=== PATIENT | male | born 1970 | race Caucasian/White ===

== ENCOUNTER 2018-08-26 20:37 | Emergency (ER) | payer MEDICAID, OTHER ==
[2018-08-26] MEDS ORDERED: Sodium Chloride 0.9% 1,000 ML IV SCH ×2 (22:30→23:30)
--- NOTE | 2018-08-26 22:31 | CRLCR ---
INDICATION: Pain TECHNIQUE: Abdomen two-view abdomen one-view chest. COMPARISON: None FINDINGS: Chest: Cardiac silhouette is normal in size. Lungs and pleural spaces are clear. Bowel: Bowel pattern is normal. Colonic fecal retention. Soft tissues: No sign of free air. No sign of soft tissue mass. No suspicious calcifications. Surgical clips right upper quadrant. Bones: Unremarkable for age. IMPRESSION: Colonic fecal retention. Normal appearing chest. Dictated by Yonas Matthews MD @ 08/26/2018 10:30:41 PM Dictated by: Yonas Matthews MD @ 08/26/2018 22:30:47 (Electronically Signed)
[2018-08-26] MEDS ORDERED: Sodium Chloride 0.9% 10 ML Syringe FLUSH ONE (22:33)
[2018-08-26] MEDS ORDERED: Insulin Regular, Human 100 Units/ML 3 ML Vial SUBCUT ONE (22:37)
[2018-08-26] MEDS ORDERED: Iopamidol 612 MG/ML 150 ML Bottle IV STA (22:42)
[2018-08-26] MEDS ORDERED: Iopamidol 612 MG/ML 150 ML Bottle IV SCH (22:45)
[2018-08-26] MEDS ORDERED: Sodium Chloride 0.9% 100 ML IV SCH (22:45)
--- NOTE | 2018-08-26 23:31 | CRLCT ---
INDICATION: Abdominal pain. COMPARISON: None available TECHNIQUE: CT examination of the abdomen and pelvis was performed with the uneventful intravenous administration of 150 cc of Isovue-300 while 3 mm thick axial sections were obtained from the lung bases through the pubic symphysis. Oral contrast was not administered. Please note that all CT scans at this facility use dose modulation, iterative reconstruction, and/or weight-based dosing when appropriate to reduce radiation dose to as low as reasonably achievable. FINDINGS: In the abdomen, the liver is low in density, representing fatty infiltration. There is no sign of mass. The spleen, pancreas and adrenals are normal in appearance. A few tiny cysts are seen in both kidneys. The kidneys are otherwise normal in appearance. Clips are seen in the gall bladder fossa from cholecystectomy. The abdominal aorta is normal in caliber with no sign of dilatation. There is no sign of retroperitoneal mass or adenopathy. The stomach, loops of small bowel, and colon in the abdomen are normal in appearance. In the pelvis, the appendix is normal in appearance with no sign of inflammatory process. The loops of small bowel and colon in the pelvis are normal in appearance. The prostate is normal in appearance. The urinary bladder is normal in appearance. There is no sign of pelvic or inguinal mass or adenopathy. The lung bases are clear. The osseous structures are normal in appearance for the patient`s age. IMPRESSION: Nothing seen to explain the patient`s abdominal pain. CT of the abdomen shows changes of cholecystectomy. Fatty infiltration of the liver. Normal CT of the pelvis with contrast. Please note that all CT scans at this facility use dose modulation, iterative reconstruction, and/or weight-based dosing when appropriate to reduce radiation dose to as low as reasonably achievable. Dictated by Kam Nj MD @ Aug 26 2018 11:25PM Signed by Dr. Kam Nj @ Aug 26 2018 11:29PM
--- NOTE | 2018-08-27 | EDM.PDOC ---
ED HPI GENERAL MEDICAL PROBLEM - General Chief Complaint: Gastrointestinal Problem Stated Complaint: ABD PAIN/UNABLE TO HAVE A BOWEL MOVEMENT Time Seen by Provider: 08/26/18 21:30 Source of Information: Reports: Patient History Limitations: Reports: No Limitations - History of Present Illness INITIAL COMMENTS - FREE TEXT/NARRATIVE: pt arrived with ahistory of no BM for the past 4-5 days. He is not vomiting He is having upper abdomanal pain. Onset: Gradual, Other (last 2 days. He was seen at the clinic today and he was given mag citrate and a fleets enemea. ) Duration: Day(s): Location: Reports: Abdomen Associated Symptoms: Reports: Nausea/Vomiting, Other (pt is nauseated but is not vomiting. ) upper middle abd' Pain Score (Numeric/FACES): 4 - Related Data Allergies Allergy/AdvReac Type Severity Reaction Status Date / Time No Known Allergies Allergy Verified 08/26/18 21:52 Home Meds: Home Meds Amitriptyline HCl 50 mg PO DAILY 08/22/13 [History] Hydrochlorothiazide 1 tab PO DAILY 08/22/13 [History] Levothyroxine 1 tab PO DAILY 08/22/13 [History] Lisinopril [Prinivil] 1 tab PO DAILY 08/22/13 [History] SUMAtriptan succinate [Sumatriptan Succinate] 1 applic SUBCUT DAILY PRN [History] metFORMIN [Glucophage] 500 mg PO BIDMEALS 08/26/18 [History] Past Medical History Cardiovascular History: Reports: Hypertension Gastrointestinal History: Reports: Colon Polyp Musculoskeletal History: Reports: Fracture Neurological History: Reports: Migraines Endocrine/Metabolic History: Reports: Diabetes, Type II, Hypothyroidism, Obesity /BMI 30+ - Past Surgical History HEENT Surgical History: Reports: Tonsillectomy GI Surgical History: Reports: Cholecystectomy, Colonoscopy, EGD Musculoskeletal Surgical History: Reports: Other (See Below) Other Musculoskeletal Surgeries/Procedures:: ankle surgery Social & Family History - Tobacco Use Smoking Status *Q: Never Smoker - Caffeine Use Caffeine Use: Reports: Coffee - Recreational Drug Use Recreational Drug Use: No ED ROS GENERAL - Review of Systems Review Of Systems: See Below Constitutional: Reports: No Symptoms, Chills HEENT: Reports: No Symptoms Respiratory: Reports: No Symptoms Cardiovascular: Reports: No Symptoms Endocrine: Reports: High Glucose GI/Abdominal: Reports: Abdominal Pain, Other (pt has pain in the upper mid abdoman. ) : Reports: No Symptoms Musculoskeletal: Reports: No Symptoms Skin: Reports: No Symptoms Neurological: Reports: No Symptoms Psychiatric: Reports: No Symptoms ED EXAM, GI/ABD - Physical Exam Exam: See Below Text/Narrative:: pt arrived with a history of nor bm for several days. He is having upper abdomanal pain. He is nauseated but he is not vomiting. He has a history of diabetes on metformin only. His bs is usually in the 180-190 range. Pt has not had severe pain--more just uncomfortable. Exam Limited By: No Limitations General Appearance: Alert, Moderate Distress Ears: Normal TMs Nose: Normal Inspection Throat/Mouth: Normal Inspection Head: Atraumatic Neck: Normal Inspection Respiratory/Chest: No Respiratory Distress Cardiovascular: Regular Rate, Rhythm GI/Abdominal Exam: Tender, Other (pt has epigastric tenderness. ) (Male) Exam: Deferred Rectal (Males) Exam: Other (pt has no stool in the rectum. There is no masses in the rectum. ) Back Exam: Normal Inspection Extremities: Normal Inspection Neurological: Alert, Oriented, Normal Cognition Psychiatric: Normal Affect Course - Vital Signs Last Recorded V/S: Last Vital Signs Temp 36.5 C 08/27/18 00:21 Pulse 102 H 08/27/18 00:21 Resp 16 08/27/18 00:21 BP 139/96 H 08/27/18 00:21 Pulse Ox 94 L 08/27/18 00:21 - Orders/Labs/Meds Labs: Laboratory Tests 08/26/18 08/26/18 08/26/18 Range/Units 21:51 21:51 21:51 WBC 14.2 H (4.5-11.0) K/uL RBC 5.30 (4.30-5.90) M/uL Hgb 15.9 H (12.0-15.0) g/dL Hct 46.2 (40.0-54.0) % MCV 87 (80-98) fL MCH 30 (27-31) pg MCHC 34 (32-36) % Plt Count 334 (150-400) K/uL Neut % (Auto) 78 H (36-66) % Lymph % (Auto) 12 L (24-44) % Cooper % (Auto) 10 H (2-6) % Eos % (Auto) 1 L (2-4) % Baso % (Auto) 0 (0-1) % Sodium 133 L (140-148) mmol/L Potassium 3.9 (3.6-5.2) mmol/L Chloride 94 L (100-108) mmol/L Carbon Dioxide 30 (21-32) mmol/L Anion Gap 12.9 (5.0-14.0) mmol/L BUN 11 (7-18) mg/dL Creatinine 1.1 (0.8-1.3) mg/dL Est Cr Clr Drug Dosing 79.45 mL/min Estimated GFR (MDRD) > 60 (>60) Glucose 396 H (74-106) mg/dL Calcium 9.7 (8.5-10.1) mg/dL Total Bilirubin 0.6 (0.2-1.0) mg/dL AST 15 (15-37) U/L ALT 30 (12-78) U/L Alkaline Phosphatase 77 (46-116) U/L C-Reactive Protein 4.78 H (0.0-0.3) mg/dL Total Protein 8.0 (6.4-8.2) g/dL Albumin 3.8 (3.4-5.0) g/dL Globulin 4.2 H (2.3-3.5) g/dL Albumin/Globulin Ratio 0.9 L (1.2-2.2) Amylase (25-115) U/L Lipase (73-393) U/L Urine Color Urine Appearance Urine pH (4.5-8.0) Ur Specific [place] (1.008-1.030) Urine Protein (NEGATIVE) mg/dL Urine Glucose (UA) (NEGATIVE) mg/dL Urine Ketones (NEGATIVE) mg/dL Urine Occult Blood (NEGATIVE) Urine Nitrite (NEGAITVE) Urine Bilirubin (NEGATIVE) Urine Urobilinogen (NORMAL) mg/dL Ur Leukocyte Esterase (NEGATIVE) Urine RBC (0-5) Urine WBC (0-5) Ur Epithelial Cells Amorphous Sediment Urine Bacteria Urine Mucus 08/26/18 08/26/18 08/26/18 Range/Units 22:24 22:25 22:50 WBC (4.5-11.0) K/uL RBC (4.30-5.90) M/uL Hgb (12.0-15.0) g/dL Hct (40.0-54.0) % MCV (80-98) fL MCH (27-31) pg MCHC (32-36) % Plt Count (150-400) K/uL Neut % (Auto) (36-66) % Lymph % (Auto) (24-44) % Cooper % (Auto) (2-6) % Eos % (Auto) (2-4) % Baso % (Auto) (0-1) % Sodium (140-148) mmol/L Potassium (3.6-5.2) mmol/L Chloride (100-108) mmol/L Carbon Dioxide (21-32) mmol/L Anion Gap (5.0-14.0) mmol/L BUN (7-18) mg/dL Creatinine (0.8-1.3) mg/dL Est Cr Clr Drug Dosing mL/min Estimated GFR (MDRD) (>60) Glucose (74-106) mg/dL Calcium (8.5-10.1) mg/dL Total Bilirubin (0.2-1.0) mg/dL AST (15-37) U/L ALT (12-78) U/L Alkaline Phosphatase (46-116) U/L C-Reactive Protein (0.0-0.3) mg/dL Total Protein (6.4-8.2) g/dL Albumin (3.4-5.0) g/dL Globulin (2.3-3.5) g/dL Albumin/Globulin Ratio (1.2-2.2) Amylase 795 H (25-115) U/L Lipase 8499 H (73-393) U/L Urine Color Yellow Urine Appearance Clear Urine pH 6.0 (4.5-8.0) Ur Specific [place] 1.010 (1.008-1.030) Urine Protein Negative (NEGATIVE) mg/dL Urine Glucose (UA) 1000 H (NEGATIVE) mg/dL Urine Ketones 50 H (NEGATIVE) mg/dL Urine Occult Blood Negative (NEGATIVE) Urine Nitrite Negative (NEGAITVE) Urine Bilirubin Negative (NEGATIVE) Urine Urobilinogen 1 (NORMAL) mg/dL Ur Leukocyte Esterase Negative (NEGATIVE) Urine RBC Not seen (0-5) Urine WBC 0-5 (0-5) Ur Epithelial Cells Not seen Amorphous Sediment Many Urine Bacteria Not seen Urine Mucus Not seen Meds: Medications Discontinued Medications Generic Name Dose Route Start Last Admin Trade Name Mary PRN Reason Stop Dose Admin Sodium Chloride 1,000 mls @ 999 mls/hr 08/26/18 22:30 08/26/18 23:18 Normal Saline IV 999 mls/hr ASDIRECTED MARIAN Administration Sodium Chloride 100 mls @ 3 mls/sec 08/26/18 22:45 Normal Saline IV ASDIRECTED MARIAN Sodium Chloride 85 mls @ 3.5 mls/sec 08/26/18 22:42 08/26/18 23:03 Normal Saline IV 08/26/18 22:43 3.5 mls/sec ASDIRECTED STA Administration Sodium Chloride 1,000 mls @ 999 mls/hr 08/26/18 23:30 08/27/18 00:04 Normal Saline IV 999 mls/hr ASDIRECTED MARIAN Administration Insulin Human Regular 5 unit 08/26/18 22:37 08/26/18 23:25 Humulin R SUBCUT 08/26/18 22:38 5 units ONETIME ONE Administration Insulin Human Regular 4 unit 08/27/18 00:11 08/27/18 00:20 Humulin R IVPUSH 08/27/18 00:12 4 units ONETIME ONE Administration Iopamidol 150 ml 08/26/18 22:45 Isovue-300 (61%) IV . DIRECTED MARIAN Iopamidol 150 ml 08/26/18 22:42 08/26/18 23:02 Isovue-300 (61%) IV 08/26/18 22:43 150 ml . DIRECTED STA Administration Sodium Chloride 10 ml 08/26/18 22:33 08/26/18 23:18 Saline Flush FLUSH 08/26/18 22:34 10 ml ONETIME ONE Administration - Re-Assessments/Exams Free Text/Narrative Re-Assessment/Exam: 08/27/18 00:06 pt had a cat scan of the abdoman which did not reveal acute findings.. His bs was 396 and he was given 5 units of subq insulin. He is on his second liter of fluid. His gb is gone. He did not appear to have a dilated duct. His history indicates his triglicerides have been elelvated. -- According to the family these were not extremely high. He does not abuse etoh. 08/27/18 00:08 Departure - Departure Time of Disposition: 00:50 Disposition: DC/Tfer to Acute Hospital 02 Condition: Fair Clinical Impression: Pancreatitis, Constipation, Hyperglycemia - Discharge Information Referrals: Yonas Calero MD [Primary Care Provider] - Forms: ED Department Discharge Care Plan Goals: transfer to [facility]
[2018-08-27] MEDS ORDERED: Insulin Regular, Human 100 Units/ML 3 ML Vial IVPUSH ONE (00:11)
== END 2018-08-27 01:05 ==
LOC: JP.ED 20:37
DX: K85.90 Acute pancreatitis without necrosis or infection, unspecified (principal); K59.00 Constipation, unspecified; E11.65 Type 2 diabetes mellitus with hyperglycemia; I10 Essential (primary) hypertension; E03.9 Hypothyroidism, unspecified; E66.9 Obesity, unspecified; Z79.899 Other long term (current) drug therapy; Z79.84 Long term (current) use of oral hypoglycemic drugs; Z68.41 Body mass index [BMI] 40.0-44.9, adult
CPT/HCPCS: 36415; 74022; 74177; 80053; 81001; 82150; 82962; 83690; 85025; 86140; 96361; 96374; 99285; J1815; J7030

== ENCOUNTER 2020-03-17 14:26 | Emergency (ER) | payer OTHER ==
[2020-03-17] MEDS ORDERED: Acetaminophen 325 MG Tab PO PRN (15:59)
--- NOTE | 2020-03-17 16:01 | EDM.PDOC ---
ED HPI GENERAL MEDICAL PROBLEM - General Chief Complaint: General Stated Complaint: COVID SYMPTOMS, HIGH BLOOD SUGARS Time Seen by Provider: 03/17/20 15:56 Source of Information: Reports: Patient, Family, RN Notes Reviewed History Limitations: Reports: No Limitations - History of Present Illness INITIAL COMMENTS - FREE TEXT/NARRATIVE: 49-year-old gentleman presents emergency department today complaint of congestion and problems with his blood sugar he is concerned about Covid and would like to be tested - Related Data Allergies Allergy/AdvReac Type Severity Reaction Status Date / Time No Known Allergies Allergy Verified 03/17/20 14:37 Home Meds: Home Meds Amitriptyline HCl 50 mg PO DAILY 08/22/13 [History] Hydrochlorothiazide 1 tab PO DAILY 08/22/13 [History] Levothyroxine 1 tab PO DAILY 08/22/13 [History] SUMAtriptan succinate [Sumatriptan Succinate] 1 applic SUBCUT DAILY PRN 08/22/13 [History] lisinopriL [Prinivil] 1 tab PO DAILY 08/22/13 [History] metFORMIN [Glucophage] 500 mg PO BIDMEALS 08/26/18 [History] glipiZIDE [Glucotrol] 5 mg PO BID 03/17/20 [History] Past Medical History Cardiovascular History: Reports: Hypertension Gastrointestinal History: Reports: Colon Polyp Musculoskeletal History: Reports: Fracture Neurological History: Reports: Migraines Endocrine/Metabolic History: Reports: Diabetes, Type II, Hypothyroidism, Obesity/BMI 30+ - Past Surgical History HEENT Surgical History: Reports: Tonsillectomy GI Surgical History: Reports: Cholecystectomy, Colonoscopy, EGD Musculoskeletal Surgical History: Reports: Other (See Below) Other Musculoskeletal Surgeries/Procedures:: ankle surgery Social & Family History - Tobacco Use Tobacco Use Status *Q: Never Tobacco User - Caffeine Use Caffeine Use: Reports: Coffee - Recreational Drug Use Recreational Drug Use: No ED ROS GENERAL - Review of Systems Review Of Systems: See Below Constitutional: Reports: No Symptoms HEENT: Reports: No Symptoms Respiratory: Reports: Other (Congestion) Cardiovascular: Reports: No Symptoms Endocrine: Reports: High Glucose GI/Abdominal: Reports: No Symptoms ED EXAM, GENERAL - Physical Exam Exam: See Below Exam Limited By: No Limitations General Appearance: Alert, WD/WN, No Apparent Distress Respiratory/Chest: No Respiratory Distress, Lungs Clear, Normal Breath Sounds, No Accessory Muscle Use, Chest Non-Tender Cardiovascular: Regular Rate, Rhythm, No Murmur Course - Vital Signs Last Recorded V/S: Last Vital Signs Temp 97.4 F 03/17/20 14:40 Pulse 103 H 03/17/20 14:40 Resp 12 03/17/20 16:42 BP 138/98 H 03/17/20 16:42 Pulse Ox 96 03/17/20 16:42 - Orders/Labs/Meds Orders: Active Orders 24 hr Category Date Time Status CORONAVIRUS COVID-19, JD Stat Lab 03/17/20 16:40 Received Acetaminophen [TylenoL] Med 03/17/20 15:59 Active 650 mg PO Q4H PRN Isolation [COMM] Stat Oth 03/17/20 15:59 Ordered Medication Orders Acetaminophen (Tylenol) 650 mg PO Q4H PRN PRN Reason: Fever Greater Than 101 Labs: Laboratory Tests 03/17/20 03/17/20 03/17/20 Range/Units 15:59 16:14 16:14 WBC 9.9 (4.5-11.0) K/uL RBC 5.38 (4.30-5.90) M/uL Hgb 16.1 H (12.0-15.0) g/dL Hct 47.4 (40.0-54.0) % MCV 88 (80-98) fL MCH 30 (27-31) pg MCHC 34 (32-36) % Plt Count 350 (150-400) K/uL Neut % (Auto) 60 (36-66) % Lymph % (Auto) 27 (24-44) % Sanders % (Auto) 9 H (2-6) % Eos % (Auto) 4 (2-4) % Baso % (Auto) 0 (0-1) % D-Dimer, Quantitative 201.09 (0.0-500.0) ng/mL Sodium (140-148) mmol/L Potassium (3.6-5.2) mmol/L Chloride (100-108) mmol/L Carbon Dioxide (21-32) mmol/L Anion Gap (5.0-14.0) mmol/L BUN (7-18) mg/dL Creatinine (0.8-1.3) mg/dL Est Cr Clr Drug Dosing mL/min Estimated GFR (MDRD) (>60) Glucose (74-106) mg/dL Lactic Acid (0.4-2.0) mmol/L Calcium (8.5-10.1) mg/dL Ferritin 479 H (8-388) ng/ml Total Bilirubin (0.2-1.0) mg/dL Direct Bilirubin (0.0-0.2) mg/dL Indirect Bilirubin AST (15-37) U/L ALT (12-78) U/L Alkaline Phosphatase (46-116) U/L Lactate Dehydrogenase (85-227) U/L C-Reactive Protein (0.0-0.3) mg/dL Total Protein (6.4-8.2) g/dL Albumin (3.4-5.0) g/dL Globulin (2.3-3.5) g/dL Albumin/Globulin Ratio (1.2-2.2) Procalcitonin ng/mL 03/17/20 03/17/20 03/17/20 Range/Units 16:14 16:14 16:14 WBC (4.5-11.0) K/uL RBC (4.30-5.90) M/uL Hgb (12.0-15.0) g/dL Hct (40.0-54.0) % MCV (80-98) fL MCH (27-31) pg MCHC (32-36) % Plt Count (150-400) K/uL Neut % (Auto) (36-66) % Lymph % (Auto) (24-44) % Sanders % (Auto) (2-6) % Eos % (Auto) (2-4) % Baso % (Auto) (0-1) % D-Dimer, Quantitative (0.0-500.0) ng/mL Sodium 134 L (140-148) mmol/L Potassium 4.0 (3.6-5.2) mmol/L Chloride 96 L (100-108) mmol/L Carbon Dioxide 30 (21-32) mmol/L Anion Gap 12.0 (5.0-14.0) mmol/L BUN 12 (7-18) mg/dL Creatinine 1.2 (0.8-1.3) mg/dL Est Cr Clr Drug Dosing 72.04 mL/min Estimated GFR (MDRD) > 60 (>60) Glucose 303 H (74-106) mg/dL Lactic Acid 1.5 (0.4-2.0) mmol/L Calcium 9.4 (8.5-10.1) mg/dL Ferritin (8-388) ng/ml Total Bilirubin 0.4 (0.2-1.0) mg/dL Direct Bilirubin 0.11 (0.0-0.2) mg/dL Indirect Bilirubin 0.29 AST 17 (15-37) U/L ALT 44 (12-78) U/L Alkaline Phosphatase 75 (46-116) U/L Lactate Dehydrogenase 135 (85-227) U/L C-Reactive Protein 2.23 H (0.0-0.3) mg/dL Total Protein 7.8 (6.4-8.2) g/dL Albumin 3.7 (3.4-5.0) g/dL Globulin 4.1 H (2.3-3.5) g/dL Albumin/Globulin Ratio 0.9 L (1.2-2.2) Procalcitonin < 0.05 ng/mL Meds: Medications Generic Name Dose Route Start Last Admin Trade Name Freq PRN Reason Stop Dose Admin Acetaminophen 650 mg 03/17/20 15:59 Tylenol PO Q4H PRN Fever Greater Than 101 Departure - Departure Time of Disposition: 17:08 Disposition: Home, Self-Care 01 Condition: Fair Clinical Impression: At increased risk of exposure to COVID-19 virus - Discharge Information Referrals: Yonas Calero MD [Primary Care Provider] - Forms: ED Department Discharge Additional Instructions: Recommend self quarantine, we will contact you when the results of your Covid test become available Sepsis Event Note (ED) - Evaluation Sepsis Screening Result: No Definite Risk - Focused Exam Vital Signs: Vital Signs Temp Pulse Resp BP Pulse Ox 03/17/20 16:42 12 138/98 H 96 03/17/20 14:40 97.4 F 103 H 12 147/103 H 96 - My Orders Last 24 Hours: My Active Orders 03/17/20 15:59 Acetaminophen [TylenoL] 650 mg PO Q4H PRN Isolation [COMM] Stat 03/17/20 16:40 CORONAVIRUS COVID-19, JD Stat - Assessment/Plan Last 24 Hours: My Active Orders 03/17/20 15:59 Acetaminophen [TylenoL] 650 mg PO Q4H PRN Isolation [COMM] Stat 03/17/20 16:40 CORONAVIRUS COVID-19, JD Stat Plan: Assessment Acuity = acute Site and laterality = concern for Covid symptoms Etiology = unknown Manifestations = none Location of injury = Home Lab values = glucose elevated 303 consistent hyperglycemia, ferritin elevated 4 79 and CRP 2.23 Plan Covid test is pending will be available in 2 to 4 days, recommend self quarantine at this time symptomatic treatment This note was dictated using [employer] voice recognition software please call with any questions on syntax or grammar.
== END 2020-03-17 17:16 | disposition home or self-care (01) ==
LOC: JP.ED 14:26
DX: R09.81 Nasal congestion (principal); E11.9 Type 2 diabetes mellitus without complications; I10 Essential (primary) hypertension; E03.9 Hypothyroidism, unspecified; E66.9 Obesity, unspecified; Z68.41 Body mass index [BMI] 40.0-44.9, adult; Z20.828 Contact with and (suspected) exposure to other viral communicable diseases; Z79.84 Long term (current) use of oral hypoglycemic drugs
CPT/HCPCS: 36415; 80048; 80076; 82728; 83605; 83615; 84145; 85025; 85379; 86140; 99283; U0002

== ENCOUNTER 2020-11-12 11:29 | Emergency (ER) | payer OTHER ==
--- NOTE | 2020-11-12 11:52 | EDM.PDOC ---
ED HPI GENERAL MEDICAL PROBLEM - General Chief Complaint: Gastrointestinal Problem Stated Complaint: POSSIBLE PANCREATITIS Time Seen by Provider: 11/12/20 12:23 Source of Information: Reports: Patient, RN History Limitations: Reports: No Limitations - History of Present Illness INITIAL COMMENTS - FREE TEXT/NARRATIVE: Deven is a 50 year old male whom with whom assist with history presents with 2-3 days of generalized abdominal discomfort with abrupt worsening symptoms last night with reported epigastric pain nausea and profuse vomiting with malodorous smell of rotten eggs vs stool odor. Patient has history of pancreatitis diagnosed in [address] scan, previous gallbladder surgery. Deven report symptoms today are similar to biliary colic with stones. Deven has not eaten any thing today due to nausea and vomiting most of the night. Deven report significant symptom improvement after vomiting large volume this am. Patient/ contacted clinic provider whom recommended ER evaluation today with CT scan recommended. Patient had a few episodes of diarrhea at home. Upper Abdomen Pain Score (Numeric/FACES): 2 - Related Data Allergies Allergy/AdvReac Type Severity Reaction Status Date / Time No Known Allergies Allergy Verified 11/12/20 12:15 Home Meds: Home Meds Amitriptyline HCl 50 mg PO DAILY 08/22/13 [History] Hydrochlorothiazide 1 tab PO DAILY 08/22/13 [History] Levothyroxine 1 tab PO DAILY 08/22/13 [History] SUMAtriptan succinate [Sumatriptan Succinate] 1 applic SUBCUT DAILY PRN 08/22/13 [History] lisinopriL [Prinivil] 1 tab PO DAILY 08/22/13 [History] metFORMIN [Glucophage] 500 mg PO BIDMEALS 08/26/18 [History] glipiZIDE [Glucotrol] 5 mg PO BID 03/17/20 [History] Dulaglutide [Trulicity] 1 dose INJECT WEEKLY 11/12/20 [History] Past Medical History Cardiovascular History: Reports: Hypertension Gastrointestinal History: Reports: Colon Polyp Musculoskeletal History: Reports: Fracture Neurological History: Reports: Migraines Endocrine/Metabolic History: Reports: Diabetes, Type II, Hypothyroidism, Obesity/BMI 30+ - Past Surgical History HEENT Surgical History: Reports: Tonsillectomy GI Surgical History: Reports: Cholecystectomy, Colonoscopy, EGD Musculoskeletal Surgical History: Reports: Other (See Below) Other Musculoskeletal Surgeries/Procedures:: ankle surgery Social & Family History - Caffeine Use Caffeine Use: Reports: Coffee ED ROS GENERAL - Review of Systems Review Of Systems: Comprehensive ROS is negative, except as noted in HPI. ED EXAM, GI/ABD - Physical Exam Exam: See Below Exam Limited By: No Limitations General Appearance: Alert, WD/WN, Mild Distress Eyes: Bilateral: Normal Appearance Ears: Hearing Grossly Normal Nose: Normal Mucosa Throat/Mouth: Normal Voice, No Airway Compromise Neck: Normal Inspection Respiratory/Chest: Lungs Clear, Normal Breath Sounds Cardiovascular: Normal Peripheral Pulses, Regular Rate, Rhythm GI/Abdominal Exam: Normal Bowel Sounds, Soft, Tender (epigastric ), Other (limited due to abdominal girth). No: Distended, Guarding, Rigid, Rebound Back Exam: Normal Inspection, Full Range of Motion. No: CVA Tenderness (R), CVA Tenderness (L) Extremities: Normal Inspection, Normal Range of Motion Neurological: Alert, Oriented, CN II-XII Intact, Normal Cognition, Normal Gait Psychiatric: Normal Affect, Normal Mood Skin Exam: Warm, Dry, Intact, Normal Color, No Rash Course - Vital Signs Last Recorded V/S: Last Vital Signs Temp 36.6 C 11/12/20 12:19 Pulse 81 11/12/20 14:50 Resp 14 11/12/20 12:19 BP 122/81 11/12/20 14:50 Pulse Ox 96 11/12/20 14:50 - Orders/Labs/Meds Orders: Active Orders 24 hr Category Date Time Status Cardiac Monitoring [RC] .As Directed Care 11/12/20 12:22 Active Glucose [Blood Glucose Check, Bedside] [RC] ONETIME Care 11/12/20 13:07 Active Peripheral IV Care [RC] . DIRECTED Care 11/12/20 12:23 Active Clear Liquid Diet [DIET] Diet 11/12/20 Dinner Active Sodium Chloride 0.9% [Normal Saline] 1,000 ml Med 11/12/20 12:30 Active IV ASDIRECTED Sodium Chloride 0.9% [Saline Flush] Med 11/12/20 12:22 Active 10 ml FLUSH ASDIRECTED PRN Blood Pressure [OM.PC] Routine Oth 11/12/20 14:32 Ordered Peripheral IV Insertion Adult [OM.PC] Urgent Oth 11/12/20 12:22 Ordered Medication Orders Sodium Chloride (Normal Saline) 1,000 mls @ 500 mls/hr IV ASDIRECTED [facility] Last Admin: 11/12/20 12:39 Dose: 500 mls/hr Documented by: PREILOR Sodium Chloride (Sodium Chloride 0.9% 10 Ml Syringe) 10 ml FLUSH ASDIRECTED PRN PRN Reason: Keep Vein Open Last Admin: 11/12/20 12:45 Dose: 10 ml Documented by: PREILOR Labs: Laboratory Tests 11/12/20 11/12/20 11/12/20 Range/Units 12:39 12:39 12:39 WBC 9.5 (4.5-11.0) K/uL RBC 5.16 (4.30-5.90) M/uL Hgb 15.7 H (12.0-15.0) g/dL Hct 44.9 (40.0-54.0) % MCV 87 (80-98) fL MCH 30 (27-31) pg MCHC 35 (32-36) % Plt Count 320 (150-400) K/uL Neut % (Auto) 67.2 H (36-66) % Lymph % (Auto) 20.8 L (24-44) % [place] % (Auto) 8.8 H (2-6) % Eos % (Auto) 2.9 (2-4) % Baso % (Auto) 0.3 (0-1) % Sodium 138 L (140-148) mmol/L Potassium 3.5 L (3.6-5.2) mmol/L Chloride 101 (100-108) mmol/L Carbon Dioxide 29 (21-32) mmol/L Anion Gap 11.5 (5.0-14.0) mmol/L BUN 13 (7-18) mg/dL Creatinine 1.1 (0.8-1.3) mg/dL Est Cr Clr Drug Dosing 77.73 mL/min Estimated GFR (MDRD) > 60 (>60) Glucose 112 H (74-106) mg/dL POC Glucose (74-106) mg/dL Calcium 9.0 (8.5-10.1) mg/dL Total Bilirubin 0.5 (0.2-1.0) mg/dL AST 16 (15-37) U/L ALT 33 (12-78) U/L Alkaline Phosphatase 53 (46-116) U/L C-Reactive Protein (0.0-0.3) mg/dL Total Protein 7.2 (6.4-8.2) g/dL Albumin 3.5 (3.4-5.0) g/dL Globulin 3.7 H (2.3-3.5) g/dL Albumin/Globulin Ratio 1.0 L (1.2-2.2) Amylase (25-115) U/L Lipase 59 L (73-393) U/L 11/12/20 11/12/20 11/12/20 Range/Units 13:10 13:12 13:40 WBC (4.5-11.0) K/uL RBC (4.30-5.90) M/uL Hgb (12.0-15.0) g/dL Hct (40.0-54.0) % MCV (80-98) fL MCH (27-31) pg MCHC (32-36) % Plt Count (150-400) K/uL Neut % (Auto) (36-66) % Lymph % (Auto) (24-44) % [place] % (Auto) (2-6) % Eos % (Auto) (2-4) % Baso % (Auto) (0-1) % Sodium (140-148) mmol/L Potassium (3.6-5.2) mmol/L Chloride (100-108) mmol/L Carbon Dioxide (21-32) mmol/L Anion Gap (5.0-14.0) mmol/L BUN (7-18) mg/dL Creatinine (0.8-1.3) mg/dL Est Cr Clr Drug Dosing mL/min Estimated GFR (MDRD) (>60) Glucose (74-106) mg/dL POC Glucose 105 (74-106) mg/dL Calcium (8.5-10.1) mg/dL Total Bilirubin (0.2-1.0) mg/dL AST (15-37) U/L ALT (12-78) U/L Alkaline Phosphatase (46-116) U/L C-Reactive Protein 1.03 H (0.0-0.3) mg/dL Total Protein (6.4-8.2) g/dL Albumin (3.4-5.0) g/dL Globulin (2.3-3.5) g/dL Albumin/Globulin Ratio (1.2-2.2) Amylase 36 D (25-115) U/L Lipase (73-393) U/L Meds: Medications Generic Name Dose Route Start Last Admin Trade Name Jaronq PRN Reason Stop Dose Admin Sodium Chloride 1,000 mls @ 500 mls/hr 11/12/20 12:30 11/12/20 12:39 Normal Saline IV 500 mls/hr ASDIRECTED MARIAN Administration Sodium Chloride 10 ml 11/12/20 12:22 11/12/20 12:45 Sodium Chloride 0.9% 10 Ml Syringe FLUSH 10 ml ASDIRECTED PRN Administration Keep Vein Open Discontinued Medications Generic Name Dose Route Start Last Admin Trade Name Freq PRN Reason Stop Dose Admin Hydromorphone HCl 0.5 mg 11/12/20 12:22 11/12/20 12:44 Hydromorphone 0.5 Mg/0.5 Ml Syringe IVPUSH 11/12/20 12:23 0.5 mg ONETIME ONE Administration Sodium Chloride 85 mls @ 3 mls/sec 11/12/20 14:00 11/12/20 14:26 Normal Saline IV 11/12/20 14:01 3 mls/sec ASDIRECTED MARIAN Administration Iopamidol 150 ml 11/12/20 14:00 11/12/20 14:26 Iopamidol 612 Mg/Ml 150 Ml Bottle IV 11/12/20 14:01 150 ml . DIRECTED MARIAN Administration Metoclopramide HCl 5 mg 11/12/20 12:22 11/12/20 12:40 Metoclopramide 10 Mg/2 Ml Sdv IV 11/12/20 12:23 5 mg ONETIME ONE Administration Sodium Chloride 10 ml 11/12/20 13:54 11/12/20 14:26 Sodium Chloride 0.9% 10 Ml Syringe FLUSH 11/12/20 13:55 10 ml ONETIME ONE Administration - Re-Assessments/Exams Free Text/Narrative Re-Assessment/Exam: Chart Review initiated with most recent CT Abd/Pelvis 2019 noted s/p gallbladder removal with fatty liver and no additional acute findings to explain abdominal pain but diagnosed with pancreatitis at the time of evaluation. 11/12/20 11:43 Discussed examination finding with patient and with consideration of medical history plain film may be considered or more advanced imaging for further evaluation after laboratory test results available. 11/12/20 12:42 Tech reported patient was sweating and concern regarding low blood sugar with known diabetes on Trulicity, Glipizide and Metformin. BS was above 100 on blood drawn panel. Bedside Glucose obtained 105, which reports is the lowest his blood sugar has even been, since diabetes diagnosis. 11/12/20 13:13 CT abd/pelvis with IV contrast ordered for further evaluation of non specific abdominal pain with profuse vomiting. Blood work did not show elevated lipase or Amylase to support acute pancreatitis, but SBO may be consider, likely self limited due to vomiting and self decompression overnight. Symptoms are essential resolved and tolerated 2 orange juice and crackers to improve hypoglycemic symptoms with blood sugar above 100. Discussed possible COVID causing symptoms and offered testing. Deven received the J&J COVID vaccine in September. Patient and declined COVID testing at this time. Agreeable to CT at this time. 11/12/20 13:50 CT images reviewed by myself noting slightly dilated loop of small bowel ileus i n left upper/epigastric area which may be residual SBO. Waiting for radiology report which was available at this time noting fairly normal bowel gas pattern without acute concerning findings to explain symptoms felt earlier today, which have now resolved before ER visit. History is most consistent with self limited SBO due to bilious profuse vomiting and resolution of symptoms. Information about SBO will be shared with patient to consider and discussed recurrence is possible. Decrease risk of recurrence with decreased in amount of air swallowed, decrease gum chewing. 11/12/20 15:43 Departure - Departure Time of Disposition: 15:51 Disposition: Home, Self-Care 01 Clinical Impression: Abdominal pain in male, Nausea & vomiting, Diarrhea - Discharge Information Instructions: Diarrhea, Adult, Abdominal Pain, Adult, Nausea and Vomiting, Adult, Bowel Obstruction, Ileus, Abdominal Bloating Referrals: Yonas Calero MD [Primary Care Provider] - Forms: ED Department Discharge Additional Instructions: 1. Walsh diet and advance as tolerated. 2. Continued current medications. If ill and unable to eat consider holding Glipizide to prevent symptomatic low blood sugars. 3. Continue to work toward improved overall blood sugar to decreased risk of vascular event leading to heart attack or stroke. 4. Decrease in habits or behaviors that increase air ingestion/gas. Read information shard to be considered and discuss with clinician. Sepsis Event Note (ED) - Focused Exam Vital Signs: Vital Signs Temp Pulse Resp BP Pulse Ox 11/12/20 14:50 81 122/81 96 11/12/20 12:51 87 129/83 95 11/12/20 12:19 36.6 C 94 14 157/101 H 95 11/12/20 11:56 36.6 C 94 14 157/101 H 95 - My Orders Last 24 Hours: My Active Orders 11/12/20 12:22 Cardiac Monitoring [RC] .As Directed Sodium Chloride 0.9% [Saline Flush] 10 ml FLUSH ASDIRECTED PRN Peripheral IV Insertion Adult [OM.PC] Urgent 11/12/20 12:23 Peripheral IV Care [RC] . DIRECTED 11/12/20 12:30 Sodium Chloride 0.9% [Normal Saline] 1,000 ml IV ASDIRECTED 11/12/20 13:07 Glucose [Blood Glucose Check, Bedside] [RC] ONETIME 11/12/20 14:32 Blood Pressure [OM.PC] Routine 11/12/20 Dinner Clear Liquid Diet [DIET] - Assessment/Plan Last 24 Hours: My Active Orders 11/12/20 12:22 Cardiac Monitoring [RC] .As Directed Sodium Chloride 0.9% [Saline Flush] 10 ml FLUSH ASDIRECTED PRN Peripheral IV Insertion Adult [OM.PC] Urgent 11/12/20 12:23 Peripheral IV Care [RC] . DIRECTED 11/12/20 12:30 Sodium Chloride 0.9% [Normal Saline] 1,000 ml IV ASDIRECTED 11/12/20 13:07 Glucose [Blood Glucose Check, Bedside] [RC] ONETIME 11/12/20 14:32 Blood Pressure [OM.PC] Routine 11/12/20 Dinner Clear Liquid Diet [DIET]
[2020-11-12] MEDS ORDERED: Sodium Chloride 0.9% 10 ML Syringe FLUSH PRN (12:22)
[2020-11-12] MEDS ORDERED: HYDROmorphone 0.5 MG/0.5 ML Syringe IVPUSH ONE (12:22)
[2020-11-12] MEDS ORDERED: Metoclopramide 10 MG/2 ML SDV IV ONE (12:22)
[2020-11-12] MEDS ORDERED: Sodium Chloride 0.9% 1,000 ML IV SCH (12:30)
[2020-11-12] MEDS ORDERED: Sodium Chloride 0.9% 10 ML Syringe FLUSH ONE (13:54)
[2020-11-12] MEDS ORDERED: Iopamidol 612 MG/ML 150 ML Bottle IV SCH (14:00)
--- NOTE | 2020-11-12 15:35 | CT ---
Abdomen Pelvis w Cont CLINICAL HISTORY: Abdominal pain with bilious vomiting COMPARISON: 08/26/2018. TECHNIQUE: Transverse scans were obtained from the base of the lungs to the pubic symphysis following oral contrast and IV infusion of contrast.Auto dosage reduction and iterative reconstructiontechniques employed. FINDINGS: The lung bases are clear. The liver shows some diffuse fatty infiltration. The gallbladder has been removed. The spleen has a normal size and shape. The pancreas shows no mass or inflammatory change. The adrenal glands are normal bilaterally . The kidneys show no stones or hydronephrosis. There is a 2.3 x 1.5 cm cyst in the upper pole left kidney the ureters have a normal course and caliber. The bladder has a normal contour.The aorta has a normal course and caliber. There is no suspicious retroperitoneal adenopathy. The small intestinal configuration is nonacute. There is gas and feces throughout the colon. The appendix is normal contour. IMPRESSION: Previous cholecystectomy Fatty infiltration of the liver Small cyst left kidney
== END 2020-11-12 16:30 | disposition home or self-care (01) ==
LOC: JP.ED 11:29
DX: R10.13 Epigastric pain (principal); R11.2 Nausea with vomiting, unspecified; R19.7 Diarrhea, unspecified; I10 Essential (primary) hypertension; E11.9 Type 2 diabetes mellitus without complications; E66.9 Obesity, unspecified; Z79.84 Long term (current) use of oral hypoglycemic drugs; Z79.899 Other long term (current) drug therapy; Z68.41 Body mass index [BMI] 40.0-44.9, adult
CPT/HCPCS: 36415; 74177; 80053; 82150; 82947; 83690; 85025; 86140; 96374; 96375; 99284; J1170; J2765; J7030; Q9967

== ENCOUNTER 2020-11-16 17:23 | Emergency (ER) | payer OTHER ==
--- NOTE | 2020-11-16 19:24 | EDM.PDOC ---
ED HPI GENERAL MEDICAL PROBLEM - General Chief Complaint: Abdominal Pain Stated Complaint: STOMACH PAIN Time Seen by Provider: 11/16/20 18:07 Source of Information: Reports: Patient, Family ( at bedside) History Limitations: Reports: No Limitations - History of Present Illness INITIAL COMMENTS - FREE TEXT/NARRATIVE: Patient presents emergency room today secondary to abdominal pain that he currently rates as a 3 out of 10. He reports that he has had nausea vomiting and diarrhea he had 2 vomiting episodes today as well as 3 diarrhea stools he denies any lightheaded dizziness or symptoms otherwise. Patient was here on Thursday concern at that time was for pancreatitis as he does have a history of this per his report. Patient states that he was told he had a possible bowel obstruction/ileus and discharged home as symptoms had improved. Patient states that he felt good on Thursday no concerns and then yesterday evening this morning started having increased complaints decreased appetite secondary to abdominal pain. He states that he is able to drink and has been drinking water without any difficulty although he did have 2 episodes of emesis one this morning and one this evening. They did contact Dr. Calero [facility] today who recommended that he comes to the emergency room. Patient states that pain on Thursday was more epigastric in nature he says now it is more umbilicus in nature and he feels like his umbilicus area is hard. Patient also reports that he had no bowel movement until today since previous ER visit on Thursday. Patient states that he has a history of a cholecystectomy approximately 8 to 9 years ago was done laparoscopically and has not had any other abdominal surgeries PMH--DM2 (oral, Trulicity), HTN, hypothyroid, migraine PUGA, obesity Meds--reviewed in the EMR NKDA Tob/Drugs--denies EtOH--occassional, 1-2 beers weekly Denies COVID infection history, has received the COVID immunization (J&J in September) Abdomen Pain Score (Numeric/FACES): 3 - Related Data Allergies Allergy/AdvReac Type Severity Reaction Status Date / Time No Known Allergies Allergy Verified 11/16/20 17:59 Home Meds: Home Meds Amitriptyline HCl 50 mg PO DAILY 08/22/13 [History] Hydrochlorothiazide 1 tab PO DAILY 08/22/13 [History] Levothyroxine 1 tab PO DAILY 06/02/14 [History] SUMAtriptan succinate [Sumatriptan Succinate] 1 applic SUBCUT DAILY PRN 08/22/13 [History] lisinopriL [Prinivil] 1 tab PO DAILY 08/22/13 [History] metFORMIN [Glucophage] 500 mg PO BIDMEALS 08/26/18 [History] glipiZIDE [Glucotrol] 5 mg PO BID 03/17/20 [History] Dulaglutide [Trulicity] 1 dose INJECT WEEKLY 11/12/20 [History] Past Medical History Cardiovascular History: Reports: Hypertension Gastrointestinal History: Reports: Colon Polyp, Pancreatitis Musculoskeletal History: Reports: Fracture Neurological History: Reports: Migraines Endocrine/Metabolic History: Reports: Diabetes, Type II, Hypothyroidism, Obesity/BMI 30+ - Infectious Disease History Infectious Disease History: Reports: None - Past Surgical History HEENT Surgical History: Reports: Tonsillectomy GI Surgical History: Reports: Cholecystectomy, Colonoscopy, EGD Musculoskeletal Surgical History: Reports: Other (See Below) Other Musculoskeletal Surgeries/Procedures:: ankle surgery Social & Family History - Tobacco Use Tobacco Use Status *Q: Never Tobacco User - Caffeine Use Caffeine Use: Reports: None - Recreational Drug Use Recreational Drug Use: No ED ROS GENERAL - Review of Systems Review Of Systems: Comprehensive ROS is negative, except as noted in HPI. Constitutional: Reports: No Symptoms. Denies: Fever, Chills, Weakness GI/Abdominal: Reports: Abdominal Pain, Diarrhea, Decreased Appetite, Nausea, Vomiting : Reports: No Symptoms ED EXAM, GI/ABD - Physical Exam Exam: See Below Exam Limited By: No Limitations General Appearance: Alert, WD/WN, No Apparent Distress Eyes: Bilateral: Normal Appearance, EOMI Ears: Normal External Exam, Hearing Grossly Normal Nose: Normal Inspection Throat/Mouth: Normal Inspection, Normal Lips, Normal Oropharynx, Normal Voice, No Airway Compromise Head: Atraumatic, Normocephalic Neck: Normal Inspection, Supple, Non-Tender, Full Range of Motion Respiratory/Chest: No Respiratory Distress, Lungs Clear, Normal Breath Sounds Cardiovascular: Normal Peripheral Pulses, Regular Rate, Rhythm, No Edema, No Murmur GI/Abdominal Exam: Normal Bowel Sounds, Soft, No Distention, Tender (mild tenderness periumbilical area; has noted ventral hernia from umbilicus superior with valsalve that is soft, measures 5 cm in width ( states longtime presenc e but thinks larger in nature than before)). No: Guarding, Rigid, Rebound (Male) Exam: Deferred Rectal (Males) Exam: Deferred Back Exam: Normal Inspection, Full Range of Motion Extremities: Normal Inspection, Normal Range of Motion, No Pedal Edema, Normal Capillary Refill Neurological: Alert, Oriented, CN II-XII Intact, Normal Cognition, No Motor/Sensory Deficits Psychiatric: Normal Affect, Normal Mood Skin Exam: Warm, Dry, Intact, Normal Color Course - Vital Signs Text/Narrative:: 191--labs are reviewed noted for a mild elevation of WBC14 with 80% neutrophils sodium is noted to be mildly decreased in a135 with an anion gap of 15.9 AST ALT ALP total bili as well as lipase are all normal. 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 2002--[place] tech verbal report is noted for no bowel in ventral hernia base. Is noted to have a fluid-filled colon he did scan the entire colon length and is noted to have fluid throughout the entire length. At this time will discuss with patient today's ER findings as well as recommendations and home care to include a bland soft diet as tolerated ensure that he is drinking plenty of water or juice sports drinks of choice avoid high sugar-containing drinks sec ondary to diabetes. Advised antiemetic and to anticipate possible further diarrhea stools as it sounds like he has an element of gastroenteritis. Last Recorded V/S: Last Vital Signs Temp 97.6 F 11/16/20 18:04 Pulse 117 H 11/16/20 18:04 Resp 18 11/16/20 18:04 BP 140/97 H 11/16/20 18:04 Pulse Ox 96 11/16/20 18:04 - Orders/Labs/Meds Orders: Active Orders 24 hr Category Date Time Status Abdomen Ltd [US] Stat Exams 11/16/20 18:24 Ordered Labs: Laboratory Tests 11/16/20 11/16/20 Range/Units 18:38 18:38 WBC 14.6 H (4.5-11.0) K/uL RBC 5.47 (4.30-5.90) M/uL Hgb 16.7 H (12.0-15.0) g/dL Hct 47.7 (40.0-54.0) % MCV 87 (80-98) fL MCH 31 (27-31) pg MCHC 35 (32-36) % Plt Count 361 (150-400) K/uL Neut % (Auto) 80.3 H (36-66) % Lymph % (Auto) 11.1 L (24-44) % [place] % (Auto) 6.0 (2-6) % Eos % (Auto) 2.3 (2-4) % Baso % (Auto) 0.3 (0-1) % Sodium 135 L (140-148) mmol/L Potassium 3.9 (3.6-5.2) mmol/L Chloride 97 L (100-108) mmol/L Carbon Dioxide 26 (21-32) mmol/L Anion Gap 15.9 H (5.0-14.0) mmol/L BUN 15 (7-18) mg/dL Creatinine 1.2 (0.8-1.3) mg/dL Est Cr Clr Drug Dosing 71.25 mL/min Estimated GFR (MDRD) > 60 (>60) Glucose 139 H (74-106) mg/dL Calcium 9.2 (8.5-10.1) mg/dL Total Bilirubin 0.7 (0.2-1.0) mg/dL AST 21 (15-37) U/L ALT 36 (12-78) U/L Alkaline Phosphatase 60 (46-116) U/L Total Protein 8.2 (6.4-8.2) g/dL Albumin 4.0 (3.4-5.0) g/dL Globulin 4.2 H (2.3-3.5) g/dL Albumin/Globulin Ratio 1.0 L (1.2-2.2) - Radiology Interpretation Free Text/Narrative:: 193--Review of previous ER visit CT scan results on Oct/Thursday: CT abdomen pelvis completed on Thursday's visit was had findings of diffuse fatty liver infiltration gallbladder absence spleen is normal pancreas with no mass or inflammatory changes normal adrenals kidneys show no stones or hydronephrosis he did have a renal cyst on the left upper pole ureters were normal small intestine configuration is nonacute there is a gas feces throughout the colon and appendix is normal--impression is no acute concerns are noted only significance is previous cholecystectomy, fatty infiltration of liver, and small left renal cyst Departure - Departure Time of Disposition: 20:04 Disposition: Home, Self-Care 01 Clinical Impression: Gastroenteritis, Abdominal wall hernia, Hypertension - Discharge Information *PRESCRIPTION DRUG MONITORING PROGRAM REVIEWED*: Not Applicable *COPY OF PRESCRIPTION DRUG MONITORING REPORT IN PATIENT NIEVES: Not Applicable Instructions: Abdominal Pain, Adult, [id number], How to Take Your Blood Pressure, [id number], Food Choices to Help Relieve Diarrhea, Adult, Hypertension, Adult, [id number], Hernia, Adult, [id number] Referrals: Yonas Calero MD [Primary Care Provider] - Forms: ED Department Discharge Additional Instructions: Home care measures to include a bland soft diet as tolerated, ensure that you are drinking plenty of water or juice sports drinks of choice (avoid high sugar- containing drinks secondary to diabetes) Advised antiemetic and to anticipate possible further diarrhea stools as it appears you have an element of gastroenteritis Follow up with your family doctor in the next 3-5 days if continued symptoms, return to the ER for any further concerns/worsening symptoms for further evaluation Sepsis Event Note (ED) - Evaluation Sepsis Screening Result: Possible Sepsis Risk - Focused Exam Vital Signs: Vital Signs Temp Pulse Resp BP Pulse Ox 11/16/20 18:04 97.6 F 117 H 18 140/97 H 96 11/16/20 17:52 97.6 F 117 H 18 140/97 H 96 - My Orders Last 24 Hours: My Active Orders 11/16/20 18:24 Abdomen Ltd [US] Stat - Assessment/Plan Last 24 Hours: My Active Orders 11/16/20 18:24 Abdomen Ltd [US] Stat
--- NOTE | 2020-11-19 09:19 | US ---
Abdomen Ltd CLINICAL HISTORY: Abdominal pain FINDINGS: Real-time images are obtained over the anterior abdominal wall. There is no evidence of significant ventral hernia with or without Valsalva. IMPRESSION: No ventral hernia seen
== END 2020-11-16 20:37 | disposition home or self-care (01) ==
LOC: JP.ED 17:23
DX: K43.9 Ventral hernia without obstruction or gangrene (principal); K52.9 Noninfective gastroenteritis and colitis, unspecified; I10 Essential (primary) hypertension; E11.9 Type 2 diabetes mellitus without complications; E03.9 Hypothyroidism, unspecified; G43.909 Migraine, unspecified, not intractable, without status migrainosus; E66.9 Obesity, unspecified; Z68.41 Body mass index [BMI] 40.0-44.9, adult; Z79.84 Long term (current) use of oral hypoglycemic drugs; Z79.899 Other long term (current) drug therapy
CPT/HCPCS: 36415; 76705; 76705-26; 80053; 85025; 99284-25